=== PATIENT | female | born 1940 | race Hispanic/Latino ===

== ENCOUNTER 2019-02-18 09:58 | Inpatient (IN) | payer MEDICARE ==
[~2019-02-18] VITALS: Ht 144.8 cm; Wt 51.7 kg
[~2019-02-18 09:58] MED LIST: AMLO10TA7 PO; ATOR40TA71 PO; CALC1TAB93 PO; CHOL100040 PO; GLIP5TAB11 PO; HYDR25TA PO; INVOK100TB PO; LEVO50 PO; LISI40TA4 PO; METF-527 PO; PRENATAL VIT PO; SITA100T12 PO
[2019-02-18] MEDS ORDERED: SODIUM CHLORIDE 0.9% 1000ML 1,000 ML IV ONE ×2 (10:13→11:01)
[2019-02-18] MEDS ORDERED: MECLIZINE HCL 25 MG TABLET ONE (10:13)
[2019-02-18 10:18] LABS: BASOPHILS % (AUTO) 1.8 % (0.0-5.0); EOSINOPHILS % (AUTO) 1.1 % (0.0-8.0); HEMATOCRIT 41.4 % (36-48); LYMPHOCYTES % (AUTO) 33.8 % (21.0-51.0); MEAN CORPUSCULAR HEMOGLOBIN 31.3 pg (27.0-33.0); MEAN CORPUSCULAR VOLUME 94.7 fL (79-99); MONOCYTES % (AUTO) 3.7 % (3.0-13.0); NEUTROPHILS % (AUTO) 59.6 % (40.0-77.0); PLATELET COUNT (AUTO) 331 K/uL (130-400); RED BLOOD CELL COUNT(AUTO) 4.37 MIL/uL (4.00-5.50); RED CELL DISTRIBUTION WIDTH 14.8 % (11.0-15.5); WHITE BLOOD COUNT (AUTO) 9.8 K/uL (4.8-10.8)
[2019-02-18 10:27] LABS: CREATININE 1.1 mg/dL (0.5-1.5); POTASSIUM 3.7 mmol/L (3.5-5.1)
[2019-02-18 10:29] LABS: INR 0.89 (0.85-1.15); PARTIAL THROMBOPLASTIN TIME 25.7 SEC (26.3-35.5); PROTHROMBIN TIME 9.4 SEC (9.6-11.6)
[2019-02-18 10:31] LABS: ALBUMIN 4.3 g/dL (3.5-5.0); BILIRUBIN,TOTAL 0.8 mg/dL (0.2-1.0)
[2019-02-18 11:10] LABS: APPEARANCE,URINE Clear (CLEAR); BILIRUBIN,URINE Negative (NEGATIVE); COLOR,URINE Yellow (YELLOW); GLUCOSE, URINE (UA) >=1000 mg/dL (NEGATIVE); KETONES,URINE 15 mg/dL (NEGATIVE); LEUKOCYTE ESTERASE ,URINE Trace (NEGATIVE); NITRATE,URINE Negative (NEGATIVE); OCCULT BLOOD,URINE Negative (NEGATIVE); PROTEIN,URINE Negative (NEGATIVE); UROBILINOGEN,URINE 0.2 mg/dL (0.2-1.0)
[2019-02-18 11:33] LABS: BACTERIA,URINE Rare /HPF (None Seen); RBC,URINE None Seen /HPF (0-1); SQUAMOUS EPITHELIAL CELL,UR 0-2 /HPF (0-2); WBC,URINE 0-1 /HPF (0-1); YEAST,URINE BUDDING Few /HPF (None Seen)
[2019-02-18] MEDS ORDERED: ASPIRIN 325MG EC TAB 325 MG TABLET.DR PO ONE (12:06)
[2019-02-18] MEDS ORDERED: ACETAMINOPHEN 325 MG TAB PO PRN (13:00)
[2019-02-18] MEDS ORDERED: MECLIZINE HCL 12.5 MG TABLET PO PRN (13:00)
[2019-02-18] MEDS ORDERED: ONDANSETRON HCL 4 MG/2 ML VIAL IVP PRN (13:00)
[2019-02-18 13:20] VITALS: BP 119/66
[2019-02-18 16:00] VITALS: BP 102/64
--- NOTE | 2019-02-18 18:32 | NUR ---
NURSING NOTE Received from ER via stretcher in no distress. Patient has remained stable. Neurochecks intact. Feels a little better than this morning. Was assisted to get grom bed to restroom and was able to sit down, urinate and come elton to bed with minimal assistance. However, she states she still feels dizzy when she lays down, or when she changes position fast. No other complaints. Will be transferred to Fourth Floor in observation status.
[2019-02-18 19:00] VITALS: BP 124/66
[2019-02-18] MEDS ORDERED: ESOM40CA54 PO (22:12)
[2019-02-18] MEDS ORDERED: HYDR12.54 PO (22:12)
[2019-02-18] MEDS ORDERED: EMPA25TA PO (22:12)
[2019-02-18] MEDS ORDERED: MECL12.585 PO (22:12)
[2019-02-18 23:56] VITALS: BP 100/53
[2019-02-19] VITALS (7 sets, daily range): BP systolic 109–136; BP diastolic 59–77
[2019-02-19 05:23] LABS: BASOPHILS % (AUTO) 0.7 % (0.0-5.0); EOSINOPHILS % (AUTO) 2.1 % (0.0-8.0); HEMATOCRIT 34.4 % (36-48); LYMPHOCYTES % (AUTO) 35.4 % (21.0-51.0); MEAN CORPUSCULAR HEMOGLOBIN 31.2 pg (27.0-33.0); MEAN CORPUSCULAR HGB CONC 33.3 g/dL (32.0-36.0); MEAN CORPUSCULAR VOLUME 93.6 fL (79-99); NEUTROPHILS % (AUTO) 52.8 % (40.0-77.0); PLATELET COUNT (AUTO) 301 K/uL (130-400); RED BLOOD CELL COUNT(AUTO) 3.67 MIL/uL (4.00-5.50); RED CELL DISTRIBUTION WIDTH 15.2 % (11.0-15.5); WHITE BLOOD COUNT (AUTO) 6.9 K/uL (4.8-10.8)
[2019-02-19 05:44] LABS: ALBUMIN 3.1 g/dL (3.5-5.0); BILIRUBIN,TOTAL 0.6 mg/dL (0.2-1.0); CREATININE 0.8 mg/dL (0.5-1.5); POTASSIUM 3.5 mmol/L (3.5-5.1); TOTAL PROTEIN, SERUM 6.8 g/dL (6.0-8.3)
[2019-02-19] MEDS: SODIUM CHLORIDE 0.9% 1000ML 1,000 ML IV SCH (09:00)
[2019-02-19] MEDS ORDERED: MECLIZINE HCL 12.5 MG TABLET PO PRN (09:30)
[2019-02-19] MEDS ORDERED: PHARMACY COMMUNICATION MISC SCH ×2 (10:15→10:30)
[2019-02-19 11:03] LABS: HEMOGLOBIN A1C 7.8 % (4.0-6.0)
--- NOTE | 2019-02-19 11:15 | NUR ---
[facility] CM met with pt and son discussed dc plans. Pt is independent prior to admission, lives at home alone, son and daughter in law lives close by. Pt has a walker, cane, shower chair, provider. Denies any other equipments/services. Feels safe to go back home, son states he goes and visit pt daily and stays overnight when pt get sick, able to assist with transportation and needs. Offer possible short term placement rehab, pt and son declined at this time. DC plan to home once stable. CM to cont to follow up. Addendum: 02/19/19 at 1117 by HOMER AVINA LVN CM Amended: Links added.
[2019-02-19] MEDS: LINAGLIPTIN 5 MG TABLET PO SCH (11:20)
--- NOTE | 2019-02-19 16:03 | NUR ---
[id number] had pt sign IM Letter.Faxed to [phone] and placed in chart under consent tab.
[2019-02-19] MEDS: METFORMIN HCL 500 MG TABLET PO SCH (18:04)
[2019-02-19] MEDS ORDERED: ATORVASTATIN CALCIUM 40 MG TABLET PO SCH (21:00)
[2019-02-20] VITALS: BP 117/66
[2019-02-20] MEDS: SODIUM CHLORIDE 0.9% 1000ML 1,000 ML IV SCH (01:16)
[2019-02-20 04:00] VITALS: BP 111/50
[2019-02-20 04:32] LABS: HEMATOCRIT 33.3 % (36-48); MEAN CORPUSCULAR HEMOGLOBIN 31.5 pg (27.0-33.0); MEAN CORPUSCULAR HGB CONC 33.5 g/dL (32.0-36.0); MEAN CORPUSCULAR VOLUME 94.1 fL (79-99); PLATELET COUNT (AUTO) 254 K/uL (130-400); RED BLOOD CELL COUNT(AUTO) 3.54 MIL/uL (4.00-5.50); RED CELL DISTRIBUTION WIDTH 14.8 % (11.0-15.5); WHITE BLOOD COUNT (AUTO) 7.6 K/uL (4.8-10.8)
[2019-02-20 05:11] LABS: CREATININE 0.8 mg/dL (0.5-1.5)
[2019-02-20 08:00] VITALS: BP 131/67
[2019-02-20] MEDS ORDERED: **HM** JARDIANCE 25MG PO SCH (09:00)
[2019-02-20] MEDS: LINAGLIPTIN 5 MG TABLET PO SCH (09:00)
[2019-02-20] MEDS: METFORMIN HCL 500 MG TABLET PO SCH (09:00)
[2019-02-20] MEDS ORDERED: LEVOTHYROXINE 50 MCG TABLET PO SCH (09:00)
[2019-02-20] MEDS ORDERED: LISINOPRIL 40 MG TABLET PO SCH (09:00)
[2019-02-20] MEDS ORDERED: AMLODIPINE BESYLATE 5 MG TAB PO SCH (09:00)
[2019-02-20] MEDS ORDERED: HYDROCHLOROTHIAZIDE 25 MG TABLET PO SCH (09:00)
--- NOTE | 2019-02-20 11:45 | NUR ---
pt stated understanding of all d/c instructions in regards to vertigo and low sodium diet; iv access removed; we attempted to make follow up appointment at [facility] but only able to leave a message; note [facility] is a walk in clinic; i instructed pt to follow up there in 2 weeks. I spoke on the phone to pt's son and he will be coming to pick her up.
[2019-02-20 12:06] VITALS: BP 116/66
== END 2019-02-20 12:40 | disposition home or self-care (01) | DRG 149 ==
LOC: EDH 09:58 → OBSVTOIN 12:10 → EDHIP 12:10 → 3BH 13:22 → 4CH 18:58
PROVIDERS: ADMIT Internal Medicine; ATTEND Internal Medicine
DX: H81.10 Benign paroxysmal vertigo, unspecified ear (principal); E44.1 Mild protein-calorie malnutrition; N17.9 Acute kidney failure, unspecified; E11.9 Type 2 diabetes mellitus without complications; I10 Essential (primary) hypertension; E86.0 Dehydration; E78.5 Hyperlipidemia, unspecified; H40.9 Unspecified glaucoma; E03.9 Hypothyroidism, unspecified; M81.0 Age-related osteoporosis without current pathological fracture; Z82.3 Family history of stroke; Z82.49 Family history of ischemic heart disease and other diseases of the circulatory system; Z82.62 Family history of osteoporosis; Z83.3 Family history of diabetes mellitus; Z68.24 Body mass index [BMI] 24.0-24.9, adult
CPT/HCPCS: 36415; 70450; 70551; 80048; 80053; 81001; 82550; 82948; 83036; 84443; 84484; 85025; 85027; 85610; 85651; 85730; 86701; 87390; 93005; G0378; J7030

== ENCOUNTER 2021-02-27 18:33 | Emergency (ER) | payer MEDICARE ==
[~2021-02-27] VITALS: Ht 152.4 cm; Wt 59.0 kg
[~2021-02-27 18:33] MED LIST changes: +AMLO-258 PO; -AMLO10TA7 PO; -CALC1TAB93 PO; -CHOL100040 PO; +EMPA25TA PO; -GLIP5TAB11 PO; +HYDR12.54 PO; -HYDR25TA PO; -INVOK100TB PO; -LISI40TA4 PO; +LISI40TA9 PO; +MECL-226 PO; -PRENATAL VIT PO
[2021-02-27 19:57] LABS: BILIRUBIN,URINE SMALL (NEGATIVE); GLUCOSE, URINE (UA) 250 mg/dL (NEGATIVE); KETONES,URINE 5 mg/dL (NEGATIVE); LEUKOCYTE ESTERASE ,URINE MODERATE (NEGATIVE); NITRATE,URINE POSITIVE (NEGATIVE); OCCULT BLOOD,URINE LARGE (NEGATIVE); PROTEIN,URINE >=300 mg/dL (NEGATIVE)
[2021-02-27 20:00] VITALS: BP 127/86
[2021-02-27 20:00] LABS: APPEARANCE,URINE BLOODY (CLEAR); COLOR,URINE RED (YELLOW)
[2021-02-27 20:07] LABS: BACTERIA,URINE Few /HPF (None Seen); RBC,URINE TNTC /HPF (0-1); WBC,URINE 26-50 /HPF (0-1)
[2021-02-27 20:08] LABS: SQUAMOUS EPITHELIAL CELL,UR Rare /HPF (0-2)
[2021-02-27] MEDS ORDERED: PHENAZOPYRIDINE HCL 200 MG TABLET ONE (20:11)
[2021-02-27] MEDS ORDERED: CEFTRIAXONE 1G VIAL ONE (20:11)
[2021-02-27] MEDS ORDERED: LIDOCAINE HCL-MPF 1% 2ML VIAL ONE (20:11)
[2021-02-27] MEDS ORDERED: CEPH500B PO (20:19)
[2021-02-27] MEDS ORDERED: PHEN-847 PO (20:19)
[2021-02-27] MEDS ORDERED: CEFTRIAXONE 1G VIAL IM ONE (20:30)
[2021-02-27] MEDS ORDERED: PHENAZOPYRIDINE HCL 200 MG TABLET PO ONE (20:30)
== END 2021-02-27 20:45 | disposition home or self-care (01) ==
LOC: EDH 18:33
DX: N39.0 Urinary tract infection, site not specified (principal); E11.9 Type 2 diabetes mellitus without complications; E78.00 Pure hypercholesterolemia, unspecified; I10 Essential (primary) hypertension; Z79.84 Long term (current) use of oral hypoglycemic drugs; Z79.899 Other long term (current) drug therapy
CPT/HCPCS: 81001; 87088; 96372; 99283; J0696; J3490

== ENCOUNTER 2021-07-03 21:31 | Emergency (ER) | payer MEDICARE ==
[~2021-07-03] VITALS: Ht 157.5 cm; Wt 51.7 kg
[~2021-07-03 21:31] MED LIST changes: +CEPH500B PO; +PHEN-847 PO
[2021-07-03 22:00] VITALS: BP 114/50
[2021-07-03] MEDS: LIDOCAINE/PRILOCAINE CREAM 5GM TUBE TP ONE ×2 (22:28→23:16)
[2021-07-03] MEDS: KETOROLAC 15MG/ML VIAL (15MG/ML) IM ONE (22:29)
[2021-07-03] MEDS: LIDOCAINE HCL 4% TOP SOL 50ML TP ONE (22:30)
[2021-07-03] MEDS ORDERED: [UNRECOGNIZED DRUG - CODE] TP (22:59)
[2021-07-03] MEDS ORDERED: ACET-2079 PO (22:59)
[2021-07-03] MEDS ORDERED: IBUP-2070 PO (22:59)
== END 2021-07-03 23:34 | disposition home or self-care (01) ==
LOC: EDH 21:31
DX: B02.9 Zoster without complications (principal); E11.9 Type 2 diabetes mellitus without complications; E78.00 Pure hypercholesterolemia, unspecified; I10 Essential (primary) hypertension; Z79.1 Long term (current) use of non-steroidal anti-inflammatories (NSAID); Z79.84 Long term (current) use of oral hypoglycemic drugs; Z79.899 Other long term (current) drug therapy
CPT/HCPCS: 96372; 99283; J1885; J3490 ×2